=== PATIENT | female | born 1995 | race Caucasian/White ===

== ENCOUNTER 2023-10-26 03:52 | Inpatient (IN) | payer SELFPAY ==
[2023-10-26] VITALS (28 sets, daily range): BP systolic 92–136; BP diastolic 55–76; PULSE 36–77; TEMP 97.5–98.1
[~2023-10-26] VITALS: Ht 165.1 cm; Wt 61.4 kg
--- NOTE | 2023-10-26 04:00 | NUR ---
G3L1. 35.0. Ambulatory to LDR 5 with significant other. Pt does not speak namibian so grey inspector used for communication. Clean gown on. EFM and TOCO explained and applied. Pt states her water broke at 0330 this morning. Denies contractions or vaginal bleeding. Reports good movement. 0422: SVE 3/80/-2, clear fluid noted. Amniotrace +. 0430: at nurses station and updated on pt's status. Admit order received. See physican notification. 0433: at bedside for bedside ultrasound. Vertex noted on di/di twins. Pt wanting to attempt a vaginal delivery. Plan of care explained to pt who verbalized her understanding. Questions answered. 0500: IV started and labs obtained via IV site.
[2023-10-26] MEDS ORDERED: NATURAL IRON65 MG PO (04:54)
[2023-10-26] MEDS ORDERED: PRENATAL MVI PO (04:55)
[2023-10-26] MEDS ORDERED: LR & Oxytocin 500 ML IV SCH (05:30)
[2023-10-26] MEDS ORDERED: LR 1,000 ML IV SCH (05:30)
[2023-10-26] MEDS ORDERED: Penicillin G Potassium 5,000,000 UNITS in NS 100 ML IV ONE (05:30)
[2023-10-26 06:18] LABS: BASO % 0.3 % (0.0-2.0); EOS # 0.1 K/mm3 (0.0-0.7); EOS % 1.1 % (0.0-4.0); GRAN # 4.8 K/mm3 (1.4-6.5); HEMOGLOBIN 10.4 g/dl (12.5-16.0); LYMPH # 2.4 K/mm3 (1.2-3.4); LYMPH % 30.2 % (20.0-51.0); MEAN CELL VOLUME 93 fl (80.0-100.0); MEAN CORPUSCULAR HEMOGLOBIN 30 pg (27-31); MEAN CORPUSCULAR HGB CONC 33 g/dl (33.0-37.0); MEAN PLATELET VOLUME 12.5 fl (7.4-10.4); MONO # 0.6 K/mm3 (0.1-0.6); MONO % 7.1 % (1.7-9.3); PLATELET COUNT 222 K/mm3 (130-400); RED BLOOD COUNT 3.43 M/mm3 (4.10-5.30); REDCELL DISTRIBUTION WIDTH-CV 13.4 % (11.5-14.5)
[2023-10-26 06:38] LABS: HEMATOCRIT 31.9 % (37.0-47.0)
[2023-10-26] MEDS ORDERED: ROPivacaine PF 0.2% 200 ML IV ONE (08:17)
--- NOTE | 2023-10-26 08:40 | NUR ---
PT SITTING ON SIDE OF BED. FLUID BOLUS OF 1,000 IN. O2 AND BP MONITORS ON825- AT BEDSIDE TALKING WITH PT THROUGH LINE MAINTAINER. PT AGREED TO [id number]- TEST DOSE. PT TOLERATED WELL. PT REPOSITIONED TO WEDGE RIGHT. DIFFICULTY TRACING FHT'S AND CX DURING THIS TIME.
--- NOTE | 2023-10-26 08:43 | NUR ---
DR MORALES CALLED FOR AN UPDATE ON PT. PT SVE WAS . HE SAID OKAY, I'M AT [facility] TODAY SO IT WILL TAKE A LITTLE LONGER TO GET THEIR. THIS RN TOLD DR MORALES I WOULD CALL AND LET HIM KNOW WHEN PT WAS 8CM AND WE WERE GOING TO HEAD BACK TO THE OR. DR MORALES SAID THAT SOUNDED GOOD.
[2023-10-26] MEDS ORDERED: Naloxone 0.4 MG/ML VIAL IV PRN ×2 (09:00→13:30)
[2023-10-26] MEDS ORDERED: ePHEDrine 50 MG/10 ML VIAL IV PRN (09:00)
[2023-10-26] MEDS ORDERED: diphenhydrAMINE 50 MG/ML 1 ML VIAL IV PRN (09:00)
[2023-10-26] MEDS ORDERED: Ondansetron 4 MG/2 ML VIAL IV PRN (09:00)
[2023-10-26] MEDS ORDERED: diphenhydrAMINE 25 MG CAP PO PRN (09:00)
--- NOTE | 2023-10-26 10:10 | NUR ---
0940- SVE 7-/0. CALLED DR MORALES TO UPDATE HIM ON PT SVE AND LET HIM KNOW THAT WE WHERE MOVING THE PT TO THE OR SHORTLY. DR MORALES SAID THAT HE WAS ON HIS WAY. 0955- PT MOVED BY BED TO THE OR FOR PREPERATION OF DELIVERY. DR ALONZO NOTIFIED. 1002- PT PLACED IN LITHOTOMY, LEGS IN STIRUPS. DR MORALES AT BEDSIDE. DR ALONZO, TWO NURSERY NURSES, A STUDENT, THIS RN AND TECS AT BEDSIDE. 1008- PT COMPLETE AND INSTRUCTED TO PUSH WITH NEXT CX VIA DATA PROCESSING OPERATOR. 1010- SPONTANEOUS VAGINAL DELIVERY OF, BABY A, A VIABLE BABY BOY. FOB CUT CORD AND WAS TAKEN TO THE WARMER TO BE STIMULATED. 1012- AROM FOR BABY B. UNTRASOUND WAS USED TO CHECK POSITION. BABY WAS VERTEX. US WAS ALSO USED TO DETERMINE HEART RATE. 1015- FHT DECELED, AND VACCUUM WAS PLACED. PT WAS INSTRUCTED TO PUSH WITH CX. 1018- DELIVERY OF BABY B, A VIABLE BABY GIRL. CORD WAS CUT BY FATHER AND WAS TAKEN TO THE WARMER AND STIMULATED BY NURSERY. 1025- SPONTANEOUS DELIVERY OF THE PLACENTA. CORD GASES OBTAINED. PT WAS REPOSITIONED. BLEEDING MINIMAL. PT WAS MOVED BY BED BACK TO HER LABOR ROOM FOR PP RECOVERY. VS WNL.
[2023-10-26] MEDS ORDERED: Loratadine 10 MG TAB PO PRN (10:45)
[2023-10-26] MEDS ORDERED: Magnes Hydrox (MOM) 80 MG/ML 30 ML CUP PO PRN (10:45)
[2023-10-26] MEDS ORDERED: Phenylephrine/Mineral Oil/Petrolatum 57 GM TUBE RC PRN (13:30)
[2023-10-26] MEDS ORDERED: oxyCODONE 5 MG TAB PO PRN (13:30)
[2023-10-26] MEDS ORDERED: Ibuprofen 800 MG TAB PO SCH (13:30)
[2023-10-26] MEDS ORDERED: Measles/Mumps/Rubella Virus Vaccine Live w Diluent 0.5 ML VIAL SQ SCH (13:30)
[2023-10-26] MEDS ORDERED: Acetaminophen 500 MG TAB PO SCH (13:30)
[2023-10-26] MEDS ORDERED: Witch Hazel 50% Pads Bulk TUB TP PRN (13:30)
[2023-10-26] MEDS ORDERED: Mag/Al Hydrox/Simeth Susp 30 ML CUP PO PRN (13:30)
[2023-10-26] MEDS ORDERED: Sennosides/Docusate 8.6-50 MG TAB PO SCH (17:00)
[2023-10-26] MEDS ORDERED: traZODone 50 MG TAB PO PRN (21:00)
[2023-10-27 03:00] VITALS: BP 140/67; PULSE 47; TEMP 97.7
[2023-10-27 08:30] VITALS: BP 99/57; PULSE 50; TEMP 97.5
[2023-10-27] MEDS ORDERED: IBU800 M1 PO (08:42)
[2023-10-27 17:00] VITALS: BP 106/61; PULSE 56; TEMP 98
[2023-10-27 19:00] VITALS: BP 105/55; PULSE 49; TEMP 97.7
--- NOTE | 2023-10-27 19:00 | NUR ---
Entry Level services utilized at this time; ID number [id number]. POC reviewed and whiteboard updated. Denied pain; reviewed pain medications available and schedule for administration. VS and assessment completed. Just finished pumping; milk to nursery for twin B to have with PO feed. Reviewed certificate at this time; began working on workshit after POC and assessment completed.
[2023-10-28 07:45] VITALS: BP 114/64; PULSE 48; TEMP 97.8
--- NOTE | 2023-10-28 10:28 | NUR ---
RN AND PT DISCUSS BOARDER STATUS WITH USE OF VIDEO HYGIENE TEACHER. PT VERBALIZES UNDERSTANDING AND HAS NO QUESTIONS AT THIS TIME.
--- NOTE | 2023-10-28 15:18 | NUR ---
1330 PT GIVEN BOTH WRITTEN AND VERBAL DISCHARGE INSTRUCTIONS. PT VERBALIZES UNDERSTANDING AND ALL QUESTIONS ANSWERED AT THIS TIME. VIDEO INSULATION HELPER USED.
--- NOTE | 2023-10-29 14:59 | NUR ---
SW obtained referral for patient's twin children (Alfa Palacios & Dylan Palacios) providing, patient is a single parent, twins, self pay, needing supplies. SW informed that patient is also primarily speaks azeri. SW obtained translating device to assist with obtaining information to assist. SW met with patient and patient provided she desired resources for finances, formula, and diapers. SW obtained information and provided documentation for WIC services (patient already had WIC assistance due to having a 3 year old child), patient provided information pertaining to [facility] services (patient provided she already had this information as well to assist) patient provided local resources guide for any further assistance needed. Patient also assisted with completing financial assistance application. Document signed and provided to ANDRE case management leader for review and distribution to finance department to contact patient for further review. Nothing further.
== END 2023-10-28 13:45 | disposition home or self-care (01) | DRG 807 ==
LOC: OB 03:52 → LDR 05:33 → OB 14:15
PROVIDERS: Obstetrics & Gynecology; ADMIT Obstetrics & Gynecology
PROC: 10E0XZZ Delivery of Products of Conception, External Approach (ICD-10-PCS; principal; 2023-10-26)
PROC: 10D07Z6 Extraction of Products of Conception, Vacuum, Via Natural or Artificial Opening (ICD-10-PCS; 2023-10-26)
DX: O30.043 Twin pregnancy, dichorionic/diamniotic, third trimester (principal); Z37.2 Twins, both liveborn; Z3A.35 35 weeks gestation of pregnancy; O76 Abnormality in fetal heart rate and rhythm complicating labor and delivery; O99.02 Anemia complicating childbirth; D64.9 Anemia, unspecified; O36.5930 Maternal care for other known or suspected poor fetal growth, third trimester, not applicable or unspecified
CPT/HCPCS: J2540; J2590; J2795; J7120